=== PATIENT | female | born 1985 | race Caucasian/White ===

== ENCOUNTER 2020-04-30 18:56 | Emergency (ER) | payer OTHER ==
[2020-04-30 19:23] LABS: BASO # 0.1 10*3/uL (0.0-0.1); EOS # 0.1 10*3/uL (0.0-0.4); EOS % 1.1 % (1.0-4.0); HEMATOCRIT 43.9 % (37.0-47.0); LYMPH # 1.8 10*3/uL (1.3-4.4); LYMPH % 19.7 % (27.0-41.0); MEAN CELL VOLUME 88.7 fl (81.0-99.0); MEAN CORPUSCULAR HGB 30.7 pg (27.0-31.0); MEAN CORPUSCULAR HGB CONC 34.6 g/dl (33.0-37.0); MEAN PLATELET VOLUME 10.5 fl (9.6-12.3); MONO # 0.6 10*3/uL (0.1-1.0); MONO % 6.9 % (3.0-9.0); NEUT # 6.5 10*3/uL (2.3-7.9); PLATELET COUNT AUTOMATED 282 10*3/uL (130-400); RED BLOOD COUNT 4.95 10*6/uL (4.10-5.10); RED CELL DISTRI WIDTH 12.1 % (0-14.5); WHITE BLOOD COUNT 9.1 10*3/uL (4.8-10.8)
[2020-04-30 19:37] LABS: ALBUMIN 4.5 gm/dl (3.1-4.5); ALKALINE PHOSPHATASE 84 U/L (45-117); BUN 10 mg/dl (7-24); CHLORIDE 105 mmol/L (98-107); CREATININE 0.83 mg/dL (0.55-1.02); POTASSIUM 3.6 mmol/L (3.5-5.1); SGOT/AST 4 IU/L (3-35); SGPT/ALT 17 U/L (12-78); SODIUM 138 mmol/L (136-145); TOTAL PROTEIN 7.4 gm/dL (6.4-8.2)
[2020-04-30 19:44] LABS: ACETAMINOPHEN (TYLENOL) < 5.0 ug/ml (10-30)
[2020-04-30 19:45] LABS: THYROID STIM HORMONE (HS) 0.957 uIU/ml (0.358-4.75)
[2020-04-30 19:51] LABS: ETHYL ALCOHOL < 3.0 mg/dl (<3)
[2020-04-30 20:02] LABS: BILIRUBIN Negative (Negative); BLOOD Negative (Negative); CLARITY Cloudy (Clear); COLOR Yellow (Yellow); GLUCOSE Negative (Negative); KETONE 1+ (Negative); LEUKO ESTERASE 2+ (Negative); NITRITE Negative (Negative); PH 5.5 (4.5-8.0); SPECIFIC GRAVITY 1.015 (1.001-1.030)
[2020-04-30 20:09] LABS: URINE AMPHETAMINES > 1000 (1000ng/ml); URINE BARBITURATES < 200 (200ng/ml); URINE BENZODIAZEPINES < 200 (200ng/ml); URINE CANNABINOIDS (THC) > 50 (50ng/ml); URINE COCAINE < 300 (300ng/ml); URINE METHADONE < 300 (300ng/ml); URINE OPIATES < 300 (300ng/ml)
[2020-04-30 20:15] LABS: URINE PHENCYCLIDINE < 25 (25ng/ml)
[2020-04-30 20:18] LABS: BACTERIA 2+; EPITHELIAL CELLS TNTC; RBC 0-2 rbc/hpf (0-2); WBC 31-40 wbc/hpf (0-5)
[2020-05-01 10:50] LABS: CPK 38 U/L (26-192)
[2020-05-01 10:52] LABS: TROPONIN I < 0.015 ng/ml (<0.045)
== END 2020-05-01 12:35 | disposition short-term general hospital (02) ==
LOC: ED 18:56
PROVIDERS: Emergency Medicine
DX: F31.9 Bipolar disorder, unspecified (principal); F19.10 Other psychoactive substance abuse, uncomplicated; R45.851 Suicidal ideations; Z20.828 Contact with and (suspected) exposure to other viral communicable diseases

== ENCOUNTER 2020-09-01 13:53 | Inpatient (IN) | payer OTHER ==
[~2020-09-01] VITALS: Ht 167.6 cm; Wt 62.6 kg
[2020-09-01 13:59] VITALS: BP 115/73
[2020-09-01 14:18] LABS: BASO # 0.1 10*3/uL (0.0-0.1); BASO % 1.1 % (0.0-1.0); EOS # 0.2 10*3/uL (0.0-0.4); EOS % 3.2 % (1.0-4.0); HEMATOCRIT 44.5 % (37.0-47.0); LYMPH % 31.8 % (27.0-41.0); MEAN CELL VOLUME 91.8 fl (81.0-99.0); MEAN CORPUSCULAR HGB 30.7 pg (27.0-31.0); MEAN CORPUSCULAR HGB CONC 33.5 g/dl (33.0-37.0); MONO # 0.5 10*3/uL (0.1-1.0); MONO % 7.5 % (3.0-9.0); NEUT # 3.5 10*3/uL (2.3-7.9); NEUT % 56.2 % (47.0-73.0); PLATELET COUNT AUTOMATED 310 10*3/uL (130-400); RED BLOOD COUNT 4.85 10*6/uL (4.10-5.10); RED CELL DISTRI WIDTH 12.2 % (0-14.5); WHITE BLOOD COUNT 6.2 10*3/uL (4.8-10.8)
[2020-09-01 14:34] LABS: ALBUMIN 3.9 gm/dl (3.1-4.5); ALKALINE PHOSPHATASE 98 U/L (45-117); BUN 15 mg/dl (7-24); CHLORIDE 108 mmol/L (98-107); POTASSIUM 3.9 mmol/L (3.5-5.1); SGOT/AST 8 IU/L (3-35); SGPT/ALT 15 U/L (12-78); SODIUM 141 mmol/L (136-145); TOTAL PROTEIN 7.1 gm/dL (6.4-8.2)
[2020-09-01 14:35] LABS: B-hCG (QUALITATIVE) NEGATIVE (NEGATIVE); ETHYL ALCOHOL < 3.0 mg/dl (<3); TROPONIN I < 0.015 ng/ml (<0.045)
[2020-09-01 16:00] VITALS: BP 104/68
[2020-09-01 17:24] LABS: URINE AMPHETAMINES > 1000 (1000ng/ml); URINE BARBITURATES < 200 (200ng/ml); URINE BENZODIAZEPINES > 200 (200ng/ml); URINE CANNABINOIDS (THC) > 50 (50ng/ml); URINE COCAINE < 300 (300ng/ml); URINE METHADONE < 300 (300ng/ml); URINE OPIATES < 300 (300ng/ml)
[2020-09-01 17:25] LABS: URINE PHENCYCLIDINE < 25 (25ng/ml)
[2020-09-01 20:00] VITALS: BP 101/50
[2020-09-02] VITALS: BP 97/55
[2020-09-02 08:00] VITALS: BP 101/56
[2020-09-02 12:00] VITALS: BP 110/52
[2020-09-02 16:00] VITALS: BP 102/69
[2020-09-02 20:00] VITALS: BP 91/52
[2020-09-03] VITALS: BP 102/52
[2020-09-03 08:00] VITALS: BP 93/56
[2020-09-03 12:00] VITALS: BP 101/61
[2020-09-03 16:00] VITALS: BP 102/57
[2020-09-03 20:00] VITALS: BP 101/59
[2020-09-04] VITALS: BP 97/66
[2020-09-04 08:00] VITALS: BP 101/71
[2020-09-04] MEDS ORDERED: ATARAX,VISTARIL50 MG PO (11:03)
== END 2020-09-04 12:16 | disposition home or self-care (01) | DRG 897 ==
LOC: ED 13:53 → 5E 14:42 → EDHOLD 14:42 → 5E 15:31
PROVIDERS: Physician Assistant; ADMIT Family Medicine; ATTEND Family Medicine
DX: F15.13 Other stimulant abuse with withdrawal (principal); F13.139 Sedative, hypnotic or anxiolytic abuse with withdrawal, unspecified; F17.210 Nicotine dependence, cigarettes, uncomplicated; E83.41 Hypermagnesemia; F31.70 Bipolar disorder, currently in remission, most recent episode unspecified; E87.8 Other disorders of electrolyte and fluid balance, not elsewhere classified; F19.10 Other psychoactive substance abuse, uncomplicated; Z88.8 Allergy status to other drugs, medicaments and biological substances